=== PATIENT | male | born 1960 | race Caucasian/White ===

== ENCOUNTER 2017-10-02 15:51 | Emergency (ER) | payer OTHER ==
[2017-10-02] MEDS: SOD CHLORIDE 0.9% 1,000 ML IV (17:55)
[2017-10-02] MEDS: KETOROLAC 30 MG INJ IV (17:56)
== END 2017-10-02 19:28 | disposition home or self-care (01) ==
LOC: E/R 15:51
DX: J10.1 Influenza due to other identified influenza virus with other respiratory manifestations (principal); I10 Essential (primary) hypertension; J45.909 Unspecified asthma, uncomplicated
CPT/HCPCS: 71045; 87400; 96374; 99285-25